=== PATIENT | female | born 1975 | race Caucasian/White ===

== ENCOUNTER 2017-08-31 20:01 | Emergency (ER) | payer SELFPAY ==
[~2017-08-31] VITALS: Ht 170.2 cm; Wt 80.7 kg
[2017-08-31 23:14] LABS: Basophils # (auto) 0 uL; Eosinophils # (auto) 0.3 uL; Monocytes # (auto) 0.6 uL; Nucleated Red Blood Cells % 0.5 %
[2017-08-31 23:16] LABS: Basophils % (auto) 0.5 % (0.0-2.0); Eosinophils % (auto) 2.9 % (0.0-7.0); Hematocrit 18.5 % (36.0-46.0); Lymphocytes % (auto) 33.8 % (10.0-50.0); Mean Corpuscular Hgb Conc. 34.5 g/dL (32.0-36.0); Mean Corpuscular Volume 89.9 fL (80.0-100.0); Monocytes % (auto) 6.5 % (0.0-12.0); Neutrophils % (auto) 56.3 % (37.0-80.0); Platelet Count (auto) 245 10^3/uL (140-450); Red Blood Cells 2.06 10^6/uL (4.0-5.20); Red Cell Distribution Width 13.8 % (11.8-14.3); White Blood Cell 8.8 10^3/uL (4.4-10.8)
[2017-08-31 23:30] LABS: Hemoglobin 6.4 g/dL (12.2-16.2)
[2017-08-31 23:38] LABS: Albumin 3.3 g/dL (3.4-5.0); BUN/Creatinine Ratio 13.4; Calcium 8.6 mg/dL (8.5-10.1); Potassium 3.7 mmol/L (3.5-5.1)
[2017-08-31 23:41] LABS: Bilirubin, Total 0.1 mg/dL (0.2-1.0); Total Protein 6.4 g/dL (6.4-8.2)
[2017-09-01] MEDS ORDERED: HYDROcodone-ACET 5/325MG TAB PO ONE (03:30)
[2017-09-01 04:01] VITALS: BP 124/74
[2017-09-01 04:01] LABS: Urine Bacteria FEW /hpf (None Seen); Urine Blood 2+ /uL (Negative); Urine Mucus FEW (None Seen); Urine Specific Gravity 1.009 (1.001-1.035); Urine WBC 30 /hpf (0 - 5)
[2017-09-01 04:23] LABS: Alcohol, Urine < 3.0 mg/dL (0-5); Amphetamine Screen, Urine NEGATIVE (NEGATIVE); Barbiturate Scree,Urine NEGATIVE (NEGATIVE); Benzodiazephine Screen, Urine NEGATIVE (NEGATIVE); Cannabinoid Screen, Urine POSITIVE (NEGATIVE); Cocaine Screen, Urine NEGATIVE (NEGATIVE); Opiate Scree,Urine POSITIVE (NEGATIVE); Phencyclidine Screen, Urine NEGATIVE (NEGATIVE)
[2017-09-01 07:37] VITALS: BP 127/83
[2017-09-01 07:46] VITALS: BP 124/82
== END 2017-09-01 07:48 | disposition home or self-care (01) ==
LOC: ER 20:01
DX: O03.9 Complete or unspecified spontaneous abortion without complication (principal); Z3A.01 Less than 8 weeks gestation of pregnancy
CPT/HCPCS: 36415; 36430; 76856; 80053; 80307; 81001; 84702; 85025; 86850; 86900; 86901; 86920; 99285; P9016

== ENCOUNTER 2017-09-16 10:11 | Emergency (ER) | payer MEDICAID ==
[~2017-09-16] VITALS: Ht 170.2 cm; Wt 78.9 kg
[2017-09-16 10:38] VITALS: BP 137/79
== END 2017-09-16 14:17 | disposition left against medical advice (07) ==
LOC: ER 10:11
DX: R21 Rash and other nonspecific skin eruption (principal); Z53.21 Procedure and treatment not carried out due to patient leaving prior to being seen by health care provider

== ENCOUNTER 2019-04-27 23:31 | Emergency (ER) | payer MEDICAID ==
[~2019-04-27] VITALS: Ht 170.2 cm; Wt 79.4 kg
[2019-04-28 03:39] VITALS: BP 123/55
[2019-04-28 03:51] LABS: Urine WBC None Seen /hpf (0 - 5)
[2019-04-28 04:16] LABS: Alcohol, Urine < 3.0 mg/dL (0-5); Amphetamine Screen, Urine POSITIVE (NEGATIVE); Barbiturate Scree,Urine NEGATIVE (NEGATIVE); Benzodiazephine Screen, Urine NEGATIVE (NEGATIVE); Cannabinoid Screen, Urine NEGATIVE (NEGATIVE); Cocaine Screen, Urine NEGATIVE (NEGATIVE); Phencyclidine Screen, Urine NEGATIVE (NEGATIVE)
[2019-04-28 04:20] LABS: Urine Bacteria FEW /hpf (None Seen); Urine Blood Negative /uL (Negative); Urine Specific Gravity 1.003 (1.001-1.035)
[2019-04-28 04:23] LABS: Opiate Scree,Urine NEGATIVE (NEGATIVE)
== END 2019-04-28 05:33 | disposition home or self-care (01) ==
LOC: ER 23:35
DX: F20.9 Schizophrenia, unspecified (principal); B37.3 Candidiasis of vulva and vagina; K59.00 Constipation, unspecified
CPT/HCPCS: 72170; 80307; 81001; 81025

== ENCOUNTER 2019-11-23 17:16 | Emergency (ER) | payer SELFPAY ==
[~2019-11-23] VITALS: Ht 170.2 cm; Wt 77.6 kg
[2019-11-23 18:52] VITALS: BP 127/58
[2019-11-23] MEDS ORDERED: IBUPROFEN 800 MG TAB PO ONE (20:15)
[2019-11-23] MEDS ORDERED: PENICILLIN G BENZ 1200000 UNITS/2 ML SYRG IM ONE (20:15)
== END 2019-11-23 22:12 | disposition home or self-care (01) ==
LOC: ER 17:16
DX: S90.822A Blister (nonthermal), left foot, initial encounter (principal); S90.821A Blister (nonthermal), right foot, initial encounter; Z20.2 Contact with and (suspected) exposure to infections with a predominantly sexual mode of transmission; L55.0 Sunburn of first degree; F15.10 Other stimulant abuse, uncomplicated
CPT/HCPCS: 96372; 99283; J0561

== ENCOUNTER → 2019-12-23 | Emergency (ER) | payer SELFPAY ==
[~2019-12-23] VITALS: Ht 170.2 cm; Wt 76.7 kg
[~2019-12-23] MED LIST: TETANUS-DIPTH-ACEL PERTUSSIS 0.5ML SYR Tdap IM ONE
[2019-12-23 18:13] VITALS: BP 127/80
== END | disposition home or self-care (01) ==
LOC: ER 18:05
DX: S80.212A Abrasion, left knee, initial encounter (principal); X58.XXXA Exposure to other specified factors, initial encounter; Y93.89 Activity, other specified; Y92.89 Other specified places as the place of occurrence of the external cause; Y99.8 Other external cause status
CPT/HCPCS: 90471; 90715

== ENCOUNTER 2020-10-25 01:38 | Emergency (ER) | payer MEDICAID, OTHER ==
[2020-10-25 03:00] VITALS: BP 117/67
== END 2020-10-25 03:44 | disposition home or self-care (01) ==
LOC: ER 01:43
DX: S90.424A Blister (nonthermal), right lesser toe(s), initial encounter (principal); X58.XXXA Exposure to other specified factors, initial encounter; Y93.89 Activity, other specified; Y92.89 Other specified places as the place of occurrence of the external cause; Y99.8 Other external cause status

== ENCOUNTER 2021-11-27 00:01 | Emergency (ER) | payer MEDICAID, OTHER ==
[~2021-11-27] VITALS: Ht 170.2 cm; Wt 63.5 kg
[2021-11-27 00:40] VITALS: BP 119/80
== END 2021-11-27 02:04 | disposition home or self-care (01) ==
LOC: ER 00:01
DX: R00.0 Tachycardia, unspecified (principal); R07.89 Other chest pain
CPT/HCPCS: 71045; 93005

== ENCOUNTER 2022-07-03 12:47 | Emergency (ER) | payer MEDICAID ==
[~2022-07-03] VITALS: Ht 170.2 cm; Wt 170.0 kg
[2022-07-03 13:00] VITALS: BP 135/78
[2022-07-03] MEDS ORDERED: IBUP800T27 PO (15:50)
[2022-07-03] MEDS ORDERED: METH750T22 PO (15:50)
== END 2022-07-03 15:45 | disposition home or self-care (01) ==
LOC: ER 12:47
DX: S16.1XXA Strain of muscle, fascia and tendon at neck level, initial encounter (principal); Z79.1 Long term (current) use of non-steroidal anti-inflammatories (NSAID); Z79.899 Other long term (current) drug therapy; X58.XXXA Exposure to other specified factors, initial encounter; Y93.89 Activity, other specified; Y92.89 Other specified places as the place of occurrence of the external cause; Y99.8 Other external cause status
CPT/HCPCS: 72040